=== PATIENT | female | born 1970 | race Caucasian/White ===

== ENCOUNTER 2018-06-04 17:39 | Emergency (ER) | payer OTHER ==
[~2018-06-04] VITALS: Ht 160 cm; Wt 73.5 kg
[~2018-06-04 17:39] MED LIST: LISINOPRIL20 MG PO; NORCO 5-325 TA1 EACH PO; PROTONIX40 M1 PO; VENTOLIN HFA 1818 GM INH
[2018-06-04 18:08] LABS: ABSOLUTE NEUTROPHILS 5.2 thou/uL (1.4-8.2); BASOPHILS 0.8 % (0.0-2.0); EOSINOPHILS 1.2 % (0.0-3.0); HEMATOCRIT 43.9 % (37.0-47.0); HEMOGLOBIN 15.3 gm/dL (12.0-15.0); LYMPHOCYTES 38.9 % (24.0-44.0); MCH 31.8 pg (26.0-34.0); MCHC 34.8 g/dL (28.0-37.0); MCV 91.4 fL (80.0-100.0); MONOCYTES 6.4 % (1.0-8.0); PLATELET COUNT 204 thou/uL (150-400); POLYS 52.7 % (36.0-66.0); RDW 12.6 % (10.5-14.5); WBC 9.9 thou/uL (4.0-11.0)
[2018-06-04 18:20] LABS: CALCIUM 9.9 mg/dL (8.5-10.1); CREATININE 0.9 mg/dL (0.6-1.0); POTASSIUM 4.3 mmol/L (3.5-5.1)
[2018-06-04 18:26] LABS: ALBUMIN 4.7 g/dL (3.4-5.0); TOTAL BILIRUBIN 0.4 mg/dL (<0.1-1.0); TOTAL PROTEIN 8.9 g/dL (6.4-8.2)
[2018-06-04 18:28] LABS: TROPONIN-I <0.06 ng/mL (<0.06)
[2018-06-04 18:40] LABS: URINE BILIRUBIN NEGATIVE (Negative); URINE BLOOD TRACE (Negative); URINE CLARITY CLEAR; URINE COLOR YELLOW; URINE GLUCOSE-RANDOM* NEGATIVE (Negative); URINE KETONES NEGATIVE (Negative); URINE PROTEIN (DIPSTICK) NEGATIVE (Negative)
[2018-06-04 18:41] LABS: URINE LEUKOCYTES NEGATIVE (Negative); URINE NITRITE NEGATIVE (Negative); URINE UROBILINOGEN 0.2 E.U./dl (0.2-1.0)
[2018-06-04 18:50] LABS: INR 1.1
[2018-06-04] MEDS ORDERED: BENTYL 20 MG TA20 M1 PO (19:35)
[2018-06-04 19:43] VITALS: BP 126/64
--- NOTE | 2018-06-05 08:01 | EKG ---
[place] [address] [facility] [place] [address] ELECTROCARDIOGRAM REPORT Name: ROBERT BUCKNER Room #: DEP [facility]#: [id number] Admission: 06/04/18 Attend Phys: Discharge: 06/04/18 Date of : 70 Report #: [id number] THIS REPORT FOR: //name// [facility] ED Test Date: 2018-06-04 Test Time: 17:47:21 Pat Name: ROBERT BUCKNER Department: Room: Gender: F [employer] Admissions Representative: alexis : 1970 Requested By: Order Number: [id number] MD: Uday Castorena Measurements Intervals [place] Rate: 77 P: 12 AL: 162 QRS: -1 QRSD: 97 T: 21 QT: 393 QTc: 445 Interpretive Statements Sinus rhythm Atrial premature complex RSR' in V1 or V2, probably normal variant No previous ECG available for comparison Electronically Signed On 06-05-2018 8:01:37 MECHANICAL SERVICE SPECIALIST by Uday Castorena [email or web address] <ELECTRONICALLY SIGNED> By: Uday Castorena MD 06/05/18 0801 [id number] 46 Uday Castorena MD /JOSE MANUEL
== END 2018-06-04 19:56 | disposition home or self-care (01) ==
LOC: ER 17:39
PROVIDERS: Physician Assistant
DX: R10.12 Left upper quadrant pain (principal); M54.6 Pain in thoracic spine; M54.5 Low back pain; J45.909 Unspecified asthma, uncomplicated; Z90.49 Acquired absence of other specified parts of digestive tract; Z90.710 Acquired absence of both cervix and uterus; I10 Essential (primary) hypertension; Z98.890 Other specified postprocedural states; Z88.8 Allergy status to other drugs, medicaments and biological substances

== ENCOUNTER 2018-09-13 09:20 | Emergency (ER) | payer OTHER ==
[~2018-09-13] VITALS: Ht 160 cm; Wt 73.9 kg
[~2018-09-13 09:20] MED LIST changes: +BENTYL 20 MG TA20 M1 PO
[2018-09-13] MEDS ORDERED: ATENOLOL 50MG T50 M1 PO (09:31)
[2018-09-13 09:51] LABS: HEMATOCRIT 41.8 % (37.0-47.0); HEMOGLOBIN 14.8 gm/dL (12.0-15.0); MCH 30.8 pg (26.0-34.0); MCHC 35.4 g/dL (28.0-37.0); MCV 86.9 fL (80.0-100.0); RBC 4.81 mil/uL (4.20-5.00); RDW 11.7 % (10.5-14.5); WBC 5.2 thou/uL (4.0-11.0)
[2018-09-13 09:58] LABS: CREATININE 0.9 mg/dL (0.6-1.0); POTASSIUM 4.3 mmol/L (3.5-5.1)
[2018-09-13 12:00] VITALS: BP 108/46
--- NOTE | 2018-09-14 10:30 | EKG ---
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: ALBINA : 1970 Requested By: Christos Gu Order Number: [id number] MD: Alec Pacheco Measurements Intervals [place] Rate: 78 P: 14 HI: 177 QRS: 16 QRSD: 86 T: 54 QT: 367 QTc: 419 Interpretive Statements Sinus rhythm Multiple ventricular premature complexes RSR' in V1 or V2, probably normal variant Compared to ECG 06/04/2018 17:47:21 Ventricular premature complex(es) now present Atrial premature complex(es) no longer present Electronically Signed On 09-14-2018 10:30:18 CDT by Alec Pacheco [email or web address] ��������������������������������������������� <ELECTRONICALLY SIGNED> ���������������������������������������� By: Alec Pacheco MD ��������������������������������������������� 09/14/18 1030 0943 Alec Pacheco MD /[facility]
== END 2018-09-13 12:02 | disposition home or self-care (01) ==
LOC: ER 09:20
PROVIDERS: Emergency Medicine
DX: M25.512 Pain in left shoulder (principal); M25.522 Pain in left elbow; M25.552 Pain in left hip; J45.909 Unspecified asthma, uncomplicated; I10 Essential (primary) hypertension; Z90.49 Acquired absence of other specified parts of digestive tract; Z90.710 Acquired absence of both cervix and uterus; Z88.8 Allergy status to other drugs, medicaments and biological substances; W10.9XXA Fall (on) (from) unspecified stairs and steps, initial encounter; Y93.89 Activity, other specified; Y92.89 Other specified places as the place of occurrence of the external cause; Y99.8 Other external cause status

== ENCOUNTER 2018-11-20 13:59 | Emergency (ER) | payer OTHER ==
[~2018-11-20] VITALS: Ht 162.6 cm; Wt 75.8 kg
[~2018-11-20 13:59] MED LIST changes: +ATENOLOL 50MG T50 M1 PO
[2018-11-20] MEDS ORDERED: METHIMAZOLE10 MG PO (14:51)
[2018-11-20 14:53] LABS: HEMATOCRIT 41.9 % (37.0-47.0); HEMOGLOBIN 14.7 gm/dL (12.0-15.0); MCH 28.5 pg (26.0-34.0); MCV 81.3 fL (80.0-100.0); RBC 5.15 mil/uL (4.20-5.00); RDW 12.1 % (10.5-14.5); WBC 6.4 thou/uL (4.0-11.0)
[2018-11-20 15:03] LABS: CREATININE 0.7 mg/dL (0.6-1.0); POTASSIUM 4.1 mmol/L (3.5-5.1)
[2018-11-20 16:30] VITALS: BP 128/56
[2018-11-20] MEDS ORDERED: NORFLEX100 MG PO (16:38)
[2018-11-20] MEDS ORDERED: TRAMADOL 50 MG50 MG PO (16:38)
[2018-11-20] MEDS ORDERED: PREDNISONE 20 M20 MG PO (16:38)
== END 2018-11-20 16:30 | disposition home or self-care (01) ==
LOC: ER 13:59
PROVIDERS: Nurse Practitioner Family
DX: M54.10 Radiculopathy, site unspecified (principal); R10.31 Right lower quadrant pain; J45.909 Unspecified asthma, uncomplicated; I10 Essential (primary) hypertension; Z90.49 Acquired absence of other specified parts of digestive tract; Z90.710 Acquired absence of both cervix and uterus; Z88.8 Allergy status to other drugs, medicaments and biological substances